=== PATIENT | female | born 1945 | race Caucasian/White ===

== ENCOUNTER 2018-10-03 16:39 | Emergency (ER) | payer OTHER, SELFPAY ==
[2018-10-03 16:45] VITALS: BP 152/99; PULSE 96; RESP 20; O2SAT 99
--- NOTE | 2018-10-03 16:52 | ED_ITS ---
HPI - SOB/Dyspnea General Chief Complaint: Shortness of Breath/Dyspnea Stated Complaint: sob upon exertion, no cp. vss Time Seen by Provider: 10/03/18 16:48 Source: EMS Mode of arrival: EMS Limitations: no limitations History of Present Illness Patient is a 73-year-old female who presents with shortness of breath and dizziness. She said she was lying in her bed when she suddenly felt like she could not breathe she then got very anxious stood up and got dizzy. She did not pass out she had no chest pain or heart palpitations. She could not get a hold of anyone so he called 911. She now is feeling much better than she did. No recent travel or history of blood clots. She has not had any fever chills or productive cough. MD Complaint: shortness of breath Onset (ago): minute(s) Related Data Home Medications Medication Instructions Recorded Confirmed amlodipine 7.5 mg PO DAILY 10/03/18 10/03/18 diphenhydramine-acetaminophen 1 tab PO BEDTIME 10/03/18 10/03/18 [Tylenol PM Extra Strength] Allergies Allergy/AdvReac Type Severity Reaction Status Date / Time No Known Drug Allergies Allergy Verified 10/03/18 17:50 Review of Systems Review of Systems GENERAL: Denies chills, fatigue, malaise, fever, sweats, travel HEENT: Denies sinus pain, ear pain, sore throat, difficulty swallowing, neck pain RESPIRATORY: See HPI CARDIOVASCULAR: Denies chest pain, palpitations, orthopnea, edema GASTROINTESTINAL: Denies nausea, vomiting, abdominal pain, diarrhea, constipation, melena. : Denies dysuria, frequency, incontinence, hematuria, urinary retention, flank pain. MUSCULOSKELETAL: Denies weakness, joint pain, or bony pain SKIN: No rash, no erythema, no pruritus NEUROLOGIC: Denies weakness, dizziness, headache, numbness, change in speech, confusion PSYCHIATRIC: No concerning psychosocial issues. 12 point review of systems is negative except for those stated above and HPI Exam Initial Vital Signs Initial Vital Signs: Vital Signs Pulse Rate 96 H 10/03/18 16:45 Respiratory Rate 20 10/03/18 16:45 Blood Pressure 152/99 H 10/03/18 16:45 Pulse Oximetry 99 10/03/18 16:45 Const General: cooperative and well developed Nutritional Appearance: well nourished Orientation: alert, awake, oriented x3 and not confused [facility] Head: normocephalic and atraumatic Ears: external ears normal and TM's normal bilaterally Nose: external nose normal and No nasal discharge Face and sinus: sinuses nontender, face symmetric, no sinus tenderness and No dry mucous membranes Mouth: oral mucosae normal and moist mucous membranes Teeth and gingiva: dentition normal Throat: tonsils normal and uvula midline Eyes General: appearance normal, both eyes and all related structures Eyelids: eyelids normal Conjunctivae: conjunctivae normal Sclera: sclerae normal Pupils: PERRL EOM: EOM intact bilaterally Neck Neck: normal visual inspection, full ROM, no meningeal signs and No JVD Chest Chest: normal inspection of the chest Resp Effort & Inspection: normal respiratory effort and able to speak in complete sentences Auscultation: clear to auscultation bilaterally, no rales, no rhonchi and no wheezes Cardio Rate: regular rate Rhythm: regular rhythm Heart Sounds: S1 normal and S2 normal GI Palpation: soft and No tender Percussion: normal to percussion Back/Spine/Pelvis Back: normal to inspection Skin General: no rashes or lesions noted, No jaundice and No petechiae Neuro General: alert, oriented x3, gait normal and no focal motor deficits Speech: speech normal Course Orders Ordered: ED Orders 10/03/18 16:40 Complete Blood Count AUTO DIFF Stat Comprehensive Metabolic Panel Stat D Dimer Stat Lipase Stat Partial Thromboplastin Time Stat Prothrombin Time INR Stat Troponin & CK Cardiac Panel Stat 10/03/18 16:41 XR chest 1V Stat EKG-12 Lead Stat Vital Signs - 8 hr 10/03/18 16:45 10/03/18 16:58 10/03/18 17:49 Pulse Rate 96 H 70 83 Respiratory Rate 20 14 16 Blood Pressure 152/99 H Blood Pressure [Right Arm] 152/99 H 130/65 Pulse Oximetry 99 94 94 MDM - SOB/Dyspnea Lab Data Attestation: I reviewed the patient's lab results. Result diagrams: 10/03/18 16:40 10/03/18 16:40 Lab Results 10/03/18 10/03/18 10/03/18 Range/Units 16:40 16:40 16:40 WBC 9.2 (4.5-11.0) X10^3/uL RBC 4.96 (4.0-5.2) X10^6/uL Hgb 15.0 (12.0-16.0) g/dL Hct 45.7 (36-46) % MCV 92.2 (80-100) fL MCH 30.2 (26-34) PG MCHC 32.8 (30-36) % RDW 13.7 (11.6-14.8) % Plt Count 286 (150-400) X10^3/uL Neut % (Auto) 45.2 L (50-75) % Lymph % (Auto) 41.8 H (25-40) % [place] % (Auto) 11.2 (3-14) % Eos % (Auto) 1.2 L (2-4) % Baso % (Auto) 0.6 (0-2) % Neut # (Auto) 4200 (2929-5199) /uL PT 9.7 L (10.1-12.7) SECONDS INR 0.9 (0.9-1.3) APTT 29 (26.4-36.2) SECONDS D-Dimer (<230) ng/mL Sodium 144 (137-145) mmol/L Potassium 3.8 (3.4-5.1) mmol/L Chloride 103 (98-107) mmol/L Carbon Dioxide 23 (22-32) mmol/L BUN 26 H (7-17) mg/dL Creatinine 0.80 (0.52-1.04) mg/dL Estimated GFR > 60.0 (>60) mL/min BUN/Creatinine Ratio 32.5 H (6-22) Glucose 142 H (80-110) mg/dL Calcium 9.2 (8.4-10.2) mg/dL Total Bilirubin 0.3 (0.2-1.3) mg/dL AST 29 (14-36) IU/L ALT 39 (9-52) IU/L Alkaline Phosphatase 62 (38-126) U/L Total Creatine Kinase 55 (30-135) U/L CK-MB (CK-2) TNP CK-MB (CK-2) Rel Index TNP Troponin I < 0.012 (0.01-0.034) ng/mL B-Natriuretic Peptide (<100) Total Protein 7.9 (6.3-8.2) g/dL Albumin 4.7 (3.5-5.0) g/dL Globulin 3.2 (1.7-4.1) g/dL Albumin/Globulin Ratio 1.5 (1.0-2.8) Lipase 132 (23-300) U/L 10/03/18 10/03/18 Range/Units 16:40 Unknown WBC (4.5-11.0) X10^3/uL RBC (4.0-5.2) X10^6/uL Hgb (12.0-16.0) g/dL Hct (36-46) % MCV (80-100) fL MCH (26-34) PG MCHC (30-36) % RDW (11.6-14.8) % Plt Count (150-400) X10^3/uL Neut % (Auto) (50-75) % Lymph % (Auto) (25-40) % [place] % (Auto) (3-14) % Eos % (Auto) (2-4) % Baso % (Auto) (0-2) % Neut # (Auto) (0358-0997) /uL PT (10.1-12.7) SECONDS INR (0.9-1.3) APTT (26.4-36.2) SECONDS D-Dimer 441 H (<230) ng/mL Sodium (137-145) mmol/L Potassium (3.4-5.1) mmol/L Chloride (98-107) mmol/L Carbon Dioxide (22-32) mmol/L BUN (7-17) mg/dL Creatinine (0.52-1.04) mg/dL Estimated GFR (>60) mL/min BUN/Creatinine Ratio (6-22) Glucose (80-110) mg/dL Calcium (8.4-10.2) mg/dL Total Bilirubin (0.2-1.3) mg/dL AST (14-36) IU/L ALT (9-52) IU/L Alkaline Phosphatase (38-126) U/L Total Creatine Kinase (30-135) U/L CK-MB (CK-2) CK-MB (CK-2) Rel Index Troponin I (0.01-0.034) ng/mL B-Natriuretic Peptide < 29.6 (<100) Total Protein (6.3-8.2) g/dL Albumin (3.5-5.0) g/dL Globulin (1.7-4.1) g/dL Albumin/Globulin Ratio (1.0-2.8) Lipase (23-300) U/L ECG Data Attestation: I personally reviewed and interpreted this ECG as follows: Prior ECG tracings: not available for review Interpretation: Normal sinus rhythm rate [address] changes no T-wave inversions no priors to compare P her interval 150 QRS 93 MDM Narrative Medical decision making narrative: The patient's D-dimer is under 500 and with age correction it is also under the limit. I discussed with both patient and a possibility of PE though she does get up and do yoga she has no real risk factors. At this time the declined a CT which I feel is reasonable. I discussed all findings with the patient and , Education has been performed regarding treatment plan, diagnosis, warning signs and symptoms and all concerns have been addressed. Verbally agree with and understood all of the above. Discharge Plan Departure Patient Disposition: Home Clinical Impression: Anxiety, Atypical chest pain Discharge Date/Time: 10/03/18 19:41 Interventions: ED Discharge Assessment Last Done: 10/03/18 19:32 Instructions: DI for Atypical Chest Pain Activity Restrictions/Additional Instructions: *You have been diagnosed with anxiety atypical chest pain *What to do: At this time there is no real answer for your shortness of breath. You may require further workup and evaluation. *Continue to take medications as directed *Follow up with your primary care provider in 2-3 days *Return to ER if you should have worsening shortness of breath, recurrent episode, chest discomfort or any new, worsening or concerning symptoms Prescriptions: No Action amlodipine 5 mg Tablet 7.5 mg PO DAILY RF: 0 diphenhydramine-acetaminophen [Tylenol PM Extra Strength] 25-500 mg Tablet 1 tab PO BEDTIME RF: 0 Referrals: Christina Knight MD [Primary Care Provider] -
[2018-10-03 16:54] LABS: Add Manual Diff / Slide Review NO; Basophils Percent Auto 0.6 % (0-2); Eosinophils Percent Auto 1.2 % (2-4); Hematocrit 45.7 % (36-46); Lymphocytes Percent Auto 41.8 % (25-40); Mean Corpuscular HGB Conc 32.8 % (30-36); Mean Corpuscular Hemoglobin 30.2 PG (26-34); Mean Corpuscular Volume 92.2 fL (80-100); Monocytes Percent Auto 11.2 % (3-14); Neutrophils Absolute Auto 4200 /uL (3000-5900); Neutrophils Percent Auto 45.2 % (50-75); Platelet Count 286 X10^3/uL (150-400); Red Blood Cell Count 4.96 X10^6/uL (4.0-5.2); Red Cell Distribution Width 13.7 % (11.6-14.8); White Blood Cell Count 9.2 X10^3/uL (4.5-11.0)
--- NOTE | 2018-10-03 16:57 | PC.NURSE ---
Pt states that she was lying down and napping, felt sudden sob w/o chest pain, got worse w/ exertion and laying flat. Denies h/o CHF or respiratory illness. SOB w/ any exertion in room.
[2018-10-03 16:58] VITALS: BP 152/99; PULSE 70; RESP 14; O2SAT 94
[2018-10-03 17:02] LABS: INR 0.9 (0.9-1.3); Prothrombin Time 9.7 SECONDS (10.1-12.7)
[2018-10-03 17:05] LABS: PTT Partial Thromboplastin Tim 29 SECONDS (26.4-36.2)
[2018-10-03 17:08] LABS: Alanine Aminotransferase 39 IU/L (9-52); Albumin 4.7 g/dL (3.5-5.0); Albumin Globulin Ratio 1.5 (1.0-2.8); Alkaline Phosphatase 62 U/L (38-126); Aspartate Aminotransferase 29 IU/L (14-36); BUN Creatinine Ratio 32.5 (6-22); Bilirubin Total 0.3 mg/dL (0.2-1.3); Blood Urea Nitrogen 26 mg/dL (7-17); Calcium 9.2 mg/dL (8.4-10.2); Carbon Dioxide 23 mmol/L (22-32); Chloride 103 mmol/L (98-107); Creatine Kinase 55 U/L (30-135); Estimated Glomerular Filt Rate > 60.0 mL/min (>60); Globulin 3.2 g/dL (1.7-4.1); Glucose 142 mg/dL (80-110); HEMOLYSIS 17 (0-50); Lipase 132 U/L (23-300); Potassium 3.8 mmol/L (3.4-5.1); Sodium 144 mmol/L (137-145); Total Protein 7.9 g/dL (6.3-8.2)
[2018-10-03 17:22] LABS: Troponin I < 0.012 ng/mL (0.01-0.034)
[2018-10-03 17:43] LABS: B Type Natriuretic Peptide < 29.6 (<100)
[2018-10-03 17:49] VITALS: BP 130/65; PULSE 83; RESP 16; O2SAT 94
[2018-10-03 19:00] VITALS: BP 127/82; PULSE 70; RESP 14; O2SAT 98
[2018-10-03 19:01] LABS: D Dimer 441 ng/mL (<230)
== END 2018-10-03 19:41 | disposition home or self-care (01) ==
PROVIDERS: Emergency Provider Emergency Medicine; Family Provider Internal Medicine; PCP Internal Medicine
DX: F41.9 Anxiety disorder, unspecified (principal); R07.89 Other chest pain
CPT/HCPCS: 36591; 71045; 80053; 82550; 83690; 83880; 84484; 85025; 85379; 85610; 85730; 93005; 99283; 99285

== ENCOUNTER → 2019-09-19 14:38 | Outpatient (CLI) | payer OTHER, SELFPAY ==
--- NOTE | 2019-09-19 | DI.MG.S_ITS ---
BILATERAL DIGITAL SCREENING MAMMOGRAM 3D/2D WITH CAD: 09/19/2019 CLINICAL: Routine screening. Family history of breast cancer. Comparison is made to exams dated: 01/21/2017 mammogram, 11/11/2014 mammogram, and 11/17/2013 mammogram - [facility]. The tissue of both breasts is heterogeneously dense. This may lower the sensitivity of mammography. Current study was also evaluated with a Computer Aided Detection (CAD) system. No significant masses, calcifications, or other findings are seen in either breast. There has been no significant interval change. IMPRESSION: NEGATIVE There is no mammographic evidence of malignancy. A 1 year screening mammogram is recommended. This exam was interpreted at Station ID: [id number]. NOTE: For mammograms, a report in lay terms will be sent to the patient. Approximately 15% of breast malignancies will not be visualized mammographically. In the management of a palpable breast mass, a negative mammogram must not discourage biopsy of a clinically suspicious lesion. Electronically Signed By: Ben navarro/charley:09/21/2019 07:14:35 letter sent: Normal Exam ACR BI-RADS Category 1: Negative [id number]
== END ==
PROVIDERS: Family Provider Internal Medicine; PCP Internal Medicine; Visit Provider Student in an Organized Health Care Education/Training Program
DX: Z12.31 Encounter for screening mammogram for malignant neoplasm of breast (principal); Z80.3 Family history of malignant neoplasm of breast
CPT/HCPCS: 77063; 77067